=== PATIENT | male | born 1940 | race Hispanic/Latino ===

== ENCOUNTER 2017-11-06 15:05 | Inpatient (IN) | payer MEDICARE ==
[~2017-11-06] VITALS: Ht 167.6 cm; Wt 64.5 kg
[~2017-11-06 15:05] MED LIST: AMIO200T2 PO; APIX5TAB PO; ATOR10 PO; CHOL200012 PO; CHOL200026 PO; DILT120T PO; DOXY100C2 PO; FERR-82 PO; FINA5TAB41 PO; INSU100V12 SQ; INSU100V3 IJ; METO100T14 PO; MOME0.132 IH; MULT-1203 PO; OMEG-96 PO; PANT40TA25 PO; PREG50 PO; TAMS0.4C32 PO; TIOT4MIS3 IH
[2017-11-06] MEDS ORDERED: IPRATROPIUM/ALBUTEROL SULFATE 3 ML SOLUTION IH ONE (16:14)
[2017-11-06 16:27] LABS: BASOPHILS % (AUTO) 0.3 % (0.0-5.0); LYMPHOCYTES % (AUTO) 6.9 % (21.0-51.0); MEAN CORPUSCULAR HEMOGLOBIN 30.4 pg (27.0-33.0); MEAN CORPUSCULAR HGB CONC 34.6 g/dL (32.0-36.0); MONOCYTES % (AUTO) 11.6 % (3.0-13.0); NEUTROPHILS % (AUTO) 80.2 % (40.0-77.0); PLATELET COUNT (AUTO) 88 K/uL (130-400); RED CELL DISTRIBUTION WIDTH 15.5 % (11.0-15.5); WHITE BLOOD COUNT (AUTO) 5.1 K/uL (4.8-10.8)
[2017-11-06 16:30] LABS: HEMATOCRIT 20.2 % (42-54)
[2017-11-06 16:35] LABS: INR 1.02 (0.85-1.15); PARTIAL THROMBOPLASTIN TIME 30.7 SEC (26.3-35.5); PROTHROMBIN TIME 10.7 SEC (9.6-11.6)
[2017-11-06 16:39] LABS: CREATININE 1.4 mg/dL (0.5-1.5); POTASSIUM 3.8 mmol/L (3.5-5.1)
[2017-11-06 16:44] LABS: BILIRUBIN,TOTAL 0.9 mg/dL (0.2-1.0); TOTAL PROTEIN, SERUM 6.1 g/dL (6.0-8.3)
[2017-11-06] MEDS ORDERED: SODIUM CHLORIDE 0.9% 1000ML 1,000 ML IV ONE (16:44)
[2017-11-06] MEDS ORDERED: CEFTRIAXONE SODIUM 1 GM ONE (17:44)
[2017-11-06] MEDS ORDERED: METHYLPREDNISOLONE SOD SUCC 40MG/ML 1ML ONE (19:34)
[2017-11-06] MEDS ORDERED: AZITHROMYCIN 500MG+NS 250ML 250 ML IV ONE (19:35)
[2017-11-06 23:40] VITALS: BP 134/56
[2017-11-07] MEDS: AZITHROMYCIN 500 MG in SODIUM CHLORIDE 0.9% 250 ML IV SCH (00:45)
[2017-11-07] MEDS: METHYLPREDNISOLONE SOD SUCC 40MG/ML 1ML IVP SCH ×3 (01:08→18:36)
[2017-11-07 04:00] VITALS: BP 152/66
[2017-11-07] MEDS ORDERED: GLUCAGON 1MG KIT 1 MG ML IM PRN (04:00)
[2017-11-07] MEDS ORDERED: POTASSIUM CHLORIDE 20MEQ/100ML 100 ML IV PRN (04:00)
[2017-11-07] MEDS ORDERED: ACETAMINOPHEN-CODEINE 300/30MG TAB PO PRN ×2 (04:00)
[2017-11-07] MEDS ORDERED: LIDOCAINE HCL-MPF 1% 2ML VIAL IVP PRN (04:00)
[2017-11-07] MEDS ORDERED: POTASSIUM CHLORIDE 10% ELIXIR 20 MEQ/15 ML UDCUP PO PRN (04:00)
[2017-11-07] MEDS ORDERED: CEFTRIAXONE 1GM/D5W 50ML 50 ML IV SCH (04:00)
[2017-11-07] MEDS ORDERED: DEXTROSE 50%-WATER 50 ML DISP.SYRIN IV PRN (04:00)
[2017-11-07 05:19] LABS: MEAN CORPUSCULAR HEMOGLOBIN 31.8 pg (27.0-33.0); MEAN CORPUSCULAR HGB CONC 36.1 g/dL (32.0-36.0); MEAN CORPUSCULAR VOLUME 88.1 fL (79-99); PLATELET COUNT (AUTO) 78 K/uL (130-400); RED BLOOD CELL COUNT(AUTO) 2.06 MIL/uL (4.50-6.20); RED CELL DISTRIBUTION WIDTH 15.5 % (11.0-15.5); WHITE BLOOD COUNT (AUTO) 4.1 K/uL (4.8-10.8)
[2017-11-07 05:27] LABS: APPEARANCE,URINE Turbid (CLEAR); BILIRUBIN,URINE Negative (NEGATIVE); COLOR,URINE Yellow (YELLOW); GLUCOSE, URINE (UA) 500 mg/dL (NEGATIVE); KETONES,URINE 15 mg/dL (NEGATIVE); LEUKOCYTE ESTERASE ,URINE Large (NEGATIVE); NITRATE,URINE Negative (NEGATIVE); OCCULT BLOOD,URINE Moderate (NEGATIVE); PROTEIN,URINE POS 1+ (NEGATIVE)
[2017-11-07 05:31] LABS: HEMATOCRIT 18.1 % (42-54)
[2017-11-07 05:44] LABS: CREATINE KINASE MB 1.8 ng/mL (0.5-3.6); CREATININE 1.2 mg/dL (0.5-1.5); POTASSIUM 4.2 mmol/L (3.5-5.1); TROPONIN I 0.05 ng/mL (0.00-0.06)
[2017-11-07] MEDS ORDERED: ALBU8.5H8 IH (05:50)
[2017-11-07] MEDS ORDERED: OMEG-125 PO (05:50)
[2017-11-07] MEDS ORDERED: LEVO500T2 PO (05:50)
[2017-11-07 05:58] LABS: BACTERIA,URINE Many /HPF (None Seen); MUCUS,URINE Few LPF (None Seen); SQUAMOUS EPITHELIAL CELL,UR Few /LPF (0-2); YEAST,URINE BUDDING Moderate /HPF (None Seen)
[2017-11-07] MEDS ORDERED: CEFTRIAXONE SODIUM 1 GM IVP SCH ×2 (06:00→19:00)
[2017-11-07] MEDS: INSULIN HUMULIN R 100 UNIT/ML 3ML SQ SCH ×4 (06:30→22:30)
[2017-11-07] MEDS: IPRATROPIUM/ALBUTEROL SULFATE 3 ML SOLUTION IH PRN ×2 (07:17→12:51)
[2017-11-07 07:30] VITALS: BP 160/60
[2017-11-07 11:00] VITALS: BP 120/61
[2017-11-07] MEDS ORDERED: DIATR MEGLU/DIATRIZOATE SODIUM 30 ML BOTTLE ONE (15:03)
[2017-11-07 16:00] VITALS: BP 130/88
[2017-11-07 19:00] VITALS: BP 139/57
[2017-11-07] MEDS ORDERED: IOPAMIDOL-370 75 ML VIAL IV ONE (21:25)
[2017-11-07] MEDS: APIXABAN 5 MG TABLET PO SCH (22:29)
[2017-11-07] MEDS: ATORVASTATIN CALCIUM 10 MG TABLET PO SCH (22:29)
[2017-11-07] MEDS: PREGABALIN 25 MG CAP PO SCH (22:29)
[2017-11-07] MEDS: METOPROLOL TARTRATE 50 MG TAB PO SCH (22:30)
[2017-11-07 23:00] VITALS: BP 137/76
[2017-11-07] MEDS ORDERED: SODIUM CHLORIDE 0.9% 500ML 500 ML IV ONE (23:10)
[2017-11-08] MEDS: METHYLPREDNISOLONE SOD SUCC 40MG/ML 1ML IVP SCH ×3 (01:02→17:15)
[2017-11-08] MEDS ORDERED: AZITHROMYCIN 500MG+NS 250ML 250 ML IV ONE (01:05)
[2017-11-08] MEDS: AZITHROMYCIN 500 MG in SODIUM CHLORIDE 0.9% 250 ML IV SCH (01:06)
[2017-11-08 03:00] VITALS: BP 122/79
[2017-11-08 05:01] LABS: HEMATOCRIT 26.6 % (42-54); MEAN CORPUSCULAR HEMOGLOBIN 30.5 pg (27.0-33.0); MEAN CORPUSCULAR HGB CONC 34.9 g/dL (32.0-36.0); MEAN CORPUSCULAR VOLUME 87.4 fL (79-99); PLATELET COUNT (AUTO) 81 K/uL (130-400); RED BLOOD CELL COUNT(AUTO) 3.04 MIL/uL (4.50-6.20); RED CELL DISTRIBUTION WIDTH 15.2 % (11.0-15.5); WHITE BLOOD COUNT (AUTO) 6.4 K/uL (4.8-10.8)
[2017-11-08 05:16] LABS: CREATININE 1.3 mg/dL (0.5-1.5); POTASSIUM 4.2 mmol/L (3.5-5.1)
[2017-11-08 08:00] VITALS: BP 147/68
[2017-11-08] MEDS: INSULIN HUMULIN R 100 UNIT/ML 3ML SQ SCH ×4 (08:10→22:50)
[2017-11-08] MEDS ORDERED: CEFEPIME 1GM+NS 50ML 50 ML IV SCH (08:30)
[2017-11-08] MEDS: Cholecalciferol (Vitamin D3) 2,000 UNIT PO SCH (09:00)
[2017-11-08] MEDS ORDERED: INSULIN DETEMIR 10ML 100 UNIT/ML 10ML SQ SCH (09:00)
[2017-11-08] MEDS ORDERED: OSELTAMIVIR PHOSPHATE 75 MG CAP PO SCH (09:00)
[2017-11-08] MEDS ORDERED: COMPOUND PO MISCELLANEOUS 1 EACH MISC MISC PRN (09:15)
[2017-11-08] MEDS: DILTIAZEM HCL 120 MG CAP.SR.24H PO SCH (09:27)
[2017-11-08] MEDS: METOPROLOL TARTRATE 50 MG TAB PO SCH ×2 (09:27→22:30)
[2017-11-08] MEDS: MULTIVITAMIN TABLET PO SCH (09:28)
[2017-11-08] MEDS: FERROUS SULFATE 325 MG TABLET.DR PO SCH (09:28)
[2017-11-08] MEDS: APIXABAN 5 MG TABLET PO SCH ×2 (09:28→22:30)
[2017-11-08] MEDS: TAMSULOSIN HCL 0.4 MG CAP.ER.24H PO SCH (09:28)
[2017-11-08] MEDS: FISH OIL 1000 MG/CAP PO SCH (09:28)
[2017-11-08] MEDS: FINASTERIDE 5 MG TABLET PO SCH (09:28)
[2017-11-08] MEDS: AMIODARONE HCL 200 MG TABLET PO SCH (09:28)
[2017-11-08] MEDS: HONEY 1 APPL/ML TUBE TP SCH (09:29)
[2017-11-08] MEDS: OSELTAMIVIR PHOSPHATE 300 MG, COMPOUNDING VEHICLE SF NO.9 50 ML PO SCH ×4 (11:16→22:38)
[2017-11-08] MEDS: CEFEPIME HCL 1 GM VIAL IVP SCH ×2 (11:16→17:14)
[2017-11-08] MEDS: DOXYCYCLINE 100MG+NS 250ML 250 ML IV SCH ×2 (11:50→22:31)
[2017-11-08 11:51] VITALS: BP 134/58
[2017-11-08] MEDS: IPRATROPIUM/ALBUTEROL SULFATE 3 ML SOLUTION IH SCH ×3 (11:55→23:53)
[2017-11-08 16:20] VITALS: BP 104/61
[2017-11-08 19:32] VITALS: BP 120/53
[2017-11-08] MEDS: ATORVASTATIN CALCIUM 10 MG TABLET PO SCH (22:30)
[2017-11-08] MEDS: PREGABALIN 25 MG CAP PO SCH (22:30)
[2017-11-08 23:39] VITALS: BP 134/56
[2017-11-09] MEDS: METHYLPREDNISOLONE SOD SUCC 40MG/ML 1ML IVP SCH ×3 (01:06→17:34)
[2017-11-09] MEDS: CEFEPIME HCL 1 GM VIAL IVP SCH ×3 (01:07→17:34)
[2017-11-09 03:37] VITALS: BP 123/59
[2017-11-09 05:10] LABS: ABG BASE EXCESS -4.6 mmol/L (-2.0-3.0); ABG HCO3 17.5 mmol/L (21.0-28.0); ABG OXYGEN SATURATION 97.2 % (95.0-99.0); ABG PCO2 26 mmHg (35-48)
[2017-11-09 06:01] LABS: HEMATOCRIT 24.8 % (42-54); MEAN CORPUSCULAR HEMOGLOBIN 31.7 pg (27.0-33.0); MEAN CORPUSCULAR HGB CONC 36.1 g/dL (32.0-36.0); MEAN CORPUSCULAR VOLUME 87.7 fL (79-99); PLATELET COUNT (AUTO) 74 K/uL (130-400); RED BLOOD CELL COUNT(AUTO) 2.83 MIL/uL (4.50-6.20); RED CELL DISTRIBUTION WIDTH 15.5 % (11.0-15.5); WHITE BLOOD COUNT (AUTO) 5.1 K/uL (4.8-10.8)
[2017-11-09 06:29] LABS: ALBUMIN 1.9 g/dL (3.5-5.0); BILIRUBIN,TOTAL 0.4 mg/dL (0.2-1.0); CREATININE 1.3 mg/dL (0.5-1.5); MAGNESIUM 1.3 mg/dL (1.80-2.40); PHOSPHORUS 2.9 mg/dL (2.5-4.9); POTASSIUM 3.3 mmol/L (3.5-5.1); TOTAL PROTEIN, SERUM 5.6 g/dL (6.0-8.3)
[2017-11-09] MEDS: IPRATROPIUM/ALBUTEROL SULFATE 3 ML SOLUTION IH SCH ×4 (06:56→23:55)
[2017-11-09 07:00] VITALS: BP 125/63
[2017-11-09] MEDS: INSULIN HUMULIN R 100 UNIT/ML 3ML SQ SCH ×4 (07:55→22:26)
[2017-11-09] MEDS: Cholecalciferol (Vitamin D3) 2,000 UNIT PO SCH (09:00)
[2017-11-09] MEDS: AMIODARONE HCL 200 MG TABLET PO SCH (09:21)
[2017-11-09] MEDS: METOPROLOL TARTRATE 50 MG TAB PO SCH ×2 (09:21→22:20)
[2017-11-09] MEDS: APIXABAN 5 MG TABLET PO SCH ×2 (09:21→22:21)
[2017-11-09] MEDS: FISH OIL 1000 MG/CAP PO SCH (09:21)
[2017-11-09] MEDS: DOXYCYCLINE 100MG+NS 250ML 250 ML IV SCH ×2 (09:21→22:19)
[2017-11-09] MEDS: FERROUS SULFATE 325 MG TABLET.DR PO SCH (09:22)
[2017-11-09] MEDS: FINASTERIDE 5 MG TABLET PO SCH (09:22)
[2017-11-09] MEDS: HONEY 1 APPL/ML TUBE TP SCH (09:22)
[2017-11-09] MEDS: MULTIVITAMIN TABLET PO SCH (09:22)
[2017-11-09] MEDS: DILTIAZEM HCL 120 MG CAP.SR.24H PO SCH (09:22)
[2017-11-09] MEDS: TAMSULOSIN HCL 0.4 MG CAP.ER.24H PO SCH (09:22)
[2017-11-09] MEDS: OSELTAMIVIR PHOSPHATE 300 MG, COMPOUNDING VEHICLE SF NO.9 50 ML PO SCH ×4 (09:26→22:20)
[2017-11-09] MEDS: INSULIN GLARGINE 100 UNITS/ML 10 ML VIAL SQ SCH (09:49)
[2017-11-09 11:00] VITALS: BP 120/55
[2017-11-09] MEDS: POTASSIUM CHLORIDE 20 MEQ ERTAB PO PRN (12:50)
[2017-11-09 16:00] VITALS: BP 104/65
[2017-11-09] MEDS ORDERED: MAGNESIUM 2GM PREMIX 50ML 50 ML IV SCH (17:30)
[2017-11-09] MEDS: BUDESONIDE 0.5 MG/2 ML INH IH PRN (19:00)
[2017-11-09 20:00] VITALS: BP 125/56
[2017-11-09] MEDS: ATORVASTATIN CALCIUM 10 MG TABLET PO SCH (22:20)
[2017-11-09] MEDS: PREGABALIN 25 MG CAP PO SCH (22:21)
[2017-11-10] VITALS: BP 127/48
[2017-11-10] MEDS: CEFEPIME HCL 1 GM VIAL IVP SCH ×3 (01:28→17:36)
[2017-11-10] MEDS: METHYLPREDNISOLONE SOD SUCC 40MG/ML 1ML IVP SCH ×2 (01:28→12:25)
[2017-11-10 04:00] VITALS: BP 125/52
[2017-11-10 05:28] LABS: MEAN CORPUSCULAR HEMOGLOBIN 29.9 pg (27.0-33.0); MEAN CORPUSCULAR VOLUME 88.1 fL (79-99); NUCLEATED RED BLOOD CELLS 0.1 % (0.0-0.19); PLATELET COUNT (AUTO) 72 K/uL (130-400); RED BLOOD CELL COUNT(AUTO) 2.61 MIL/uL (4.50-6.20); RED CELL DISTRIBUTION WIDTH 15.2 % (11.0-15.5); WHITE BLOOD COUNT (AUTO) 6.1 K/uL (4.8-10.8)
[2017-11-10 05:49] LABS: CREATININE 1.4 mg/dL (0.5-1.5); MAGNESIUM 1.8 mg/dL (1.80-2.40); PHOSPHORUS 2.4 mg/dL (2.5-4.9); POTASSIUM 3.3 mmol/L (3.5-5.1)
[2017-11-10] MEDS: INSULIN HUMULIN R 100 UNIT/ML 3ML SQ SCH ×2 (06:22→12:46)
[2017-11-10] MEDS: IPRATROPIUM/ALBUTEROL SULFATE 3 ML SOLUTION IH SCH ×3 (07:07→18:10)
[2017-11-10 08:17] VITALS: BP 129/61
[2017-11-10] MEDS: Cholecalciferol (Vitamin D3) 2,000 UNIT PO SCH (09:00)
[2017-11-10] MEDS: FERROUS SULFATE 325 MG TABLET.DR PO SCH (09:00)
[2017-11-10] MEDS: OSELTAMIVIR PHOSPHATE 300 MG, COMPOUNDING VEHICLE SF NO.9 50 ML PO SCH ×2 (09:00)
[2017-11-10 12:00] VITALS: BP 144/60
[2017-11-10] MEDS: DOXYCYCLINE 100MG+NS 250ML 250 ML IV SCH (12:24)
[2017-11-10] MEDS: AMIODARONE HCL 200 MG TABLET PO SCH (12:25)
[2017-11-10] MEDS: METOPROLOL TARTRATE 50 MG TAB PO SCH (12:25)
[2017-11-10] MEDS: APIXABAN 5 MG TABLET PO SCH (12:25)
[2017-11-10] MEDS: DILTIAZEM HCL 120 MG CAP.SR.24H PO SCH (12:25)
[2017-11-10] MEDS: POTASSIUM CHLORIDE 20 MEQ ERTAB PO PRN (12:26)
[2017-11-10] MEDS: FISH OIL 1000 MG/CAP PO SCH (12:26)
[2017-11-10] MEDS: MULTIVITAMIN TABLET PO SCH (12:26)
[2017-11-10] MEDS: FINASTERIDE 5 MG TABLET PO SCH (12:26)
[2017-11-10] MEDS: TAMSULOSIN HCL 0.4 MG CAP.ER.24H PO SCH (12:26)
[2017-11-10] MEDS: INSULIN GLARGINE 100 UNITS/ML 10 ML VIAL SQ SCH (12:38)
[2017-11-10] MEDS: HONEY 1 APPL/ML TUBE TP SCH (12:43)
[2017-11-10 16:00] VITALS: BP 125/67
[2017-11-10] MEDS: BUDESONIDE 0.5 MG/2 ML INH IH PRN (18:11)
[2017-11-11] MEDS ORDERED: PREDNISONE 10 MG TABLET PO SCH (09:00)
== END 2017-11-10 18:30 | DRG 193 ==
LOC: EDH 15:05 → EDHIP 17:23 → OBSVTOIN 17:23 → 3CH 23:34
PROVIDERS: ADMIT Family Medicine; ATTEND Family Medicine
PROC: 30233N1 Transfusion of Nonautologous Red Blood Cells into Peripheral Vein, Percutaneous Approach (ICD-10-PCS; principal; 2017-11-07)
DX: J18.9 Pneumonia, unspecified organism (principal); J96.20 Acute and chronic respiratory failure, unspecified whether with hypoxia or hypercapnia; D61.818 Other pancytopenia; E46 Unspecified protein-calorie malnutrition; Z93.0 Tracheostomy status; N17.9 Acute kidney failure, unspecified; C34.90 Malignant neoplasm of unspecified part of unspecified bronchus or lung; J44.1 Chronic obstructive pulmonary disease with (acute) exacerbation; J45.901 Unspecified asthma with (acute) exacerbation; M86.9 Osteomyelitis, unspecified; I13.0 Hypertensive heart and chronic kidney disease with heart failure and stage 1 through stage 4 chronic kidney disease, or unspecified chronic kidney disease; G82.20 Paraplegia, unspecified; J44.0 Chronic obstructive pulmonary disease with (acute) lower respiratory infection; E11.22 Type 2 diabetes mellitus with diabetic chronic kidney disease; E11.51 Type 2 diabetes mellitus with diabetic peripheral angiopathy without gangrene; E11.621 Type 2 diabetes mellitus with foot ulcer; E11.65 Type 2 diabetes mellitus with hyperglycemia; E86.0 Dehydration; D63.8 Anemia in other chronic diseases classified elsewhere; E11.69 Type 2 diabetes mellitus with other specified complication; E78.5 Hyperlipidemia, unspecified; I25.10 Atherosclerotic heart disease of native coronary artery without angina pectoris; I48.91 Unspecified atrial fibrillation; I50.9 Heart failure, unspecified; L97.529 Non-pressure chronic ulcer of other part of left foot with unspecified severity; D63.0 Anemia in neoplastic disease; M54.10 Radiculopathy, site unspecified; N18.9 Chronic kidney disease, unspecified; N40.1 Benign prostatic hyperplasia with lower urinary tract symptoms; R33.8 Other retention of urine; Z74.01 Bed confinement status; Z79.01 Long term (current) use of anticoagulants; Z85.118 Personal history of other malignant neoplasm of bronchus and lung; Z92.21 Personal history of antineoplastic chemotherapy; Z87.891 Personal history of nicotine dependence; Z92.3 Personal history of irradiation; Z95.0 Presence of cardiac pacemaker; Z95.1 Presence of aortocoronary bypass graft; Z68.23 Body mass index [BMI] 23.0-23.9, adult; Z89.422 Acquired absence of other left toe(s); Z89.421 Acquired absence of other right toe(s); Z28.21 Immunization not carried out because of patient refusal
CPT/HCPCS: 36415; 36430; 36600; 71045; 71275; 74177; 80048; 80053; 81001; 82550; 82553; 82803; 82948; 83605; 83735; 83874; 83880; 84100; 84484; 85025; 85027; 85610; 85730; 86850; 86900; 86901; 86922; 87804; 93005; 94640; 94664; A4218; J0456; J0692; J0696; J1815; J2920; J3475; J3490; J7030; J7040; P9016; Q9963; Q9967

== ENCOUNTER 2017-11-14 13:33 | Inpatient (IN) | payer MEDICARE ==
[2017-11-14] VITALS (18 sets, daily range): BP systolic 93–156; BP diastolic 39–99
[~2017-11-14] VITALS: Ht 165.1 cm; Wt 76.2 kg
[~2017-11-14 13:33] MED LIST changes: +ALBU8.5H8 IH; +LEVO500T2 PO; +OMEG-125 PO
[2017-11-14 14:35] LABS: ABG BASE EXCESS -14.6 mmol/L (-2.0-3.0); ABG HCO3 9.3 mmol/L (21.0-28.0); ABG OXYGEN SATURATION 99.1 % (95.0-99.0); ABG PCO2 19 mmHg (35-48)
[2017-11-14] MEDS ORDERED: VANCOMYCIN 1GM+NS 250ML 250 ML IV ONE (16:26)
[2017-11-14] MEDS ORDERED: DEXTROSE 50%-WATER 50 ML DISP.SYRIN IV ONE ×2 (16:57→23:53)
[2017-11-14] MEDS ORDERED: DEXTROSE 10%-WATER 1,000 ML IV ONE (17:10)
[2017-11-14] MEDS: MEROPENEM 1 GM VIAL IVP SCH (21:45)
[2017-11-14] MEDS: SODIUM CHLORIDE 0.9% 1000ML 1,000 ML IV SCH (21:45)
[2017-11-14] MEDS: DEXTROSE 10%-WATER 1,000 ML IV SCH (21:50)
[2017-11-14] MEDS ORDERED: IPRA3AMP4 IH (22:01)
[2017-11-14] MEDS ORDERED: IPRA0.2S54 IH (22:01)
[2017-11-14] MEDS ORDERED: PRED20TA3 PO (22:01)
[2017-11-14] MEDS ORDERED: CEFE1FRO IV (22:01)
[2017-11-14] MEDS ORDERED: DILT120C89 PO (22:01)
[2017-11-14] MEDS ORDERED: POTASSIUM CHLORIDE 20 MEQ ERTAB PO PRN (23:30)
[2017-11-14] MEDS ORDERED: ACETAMINOPHEN-CODEINE 300/30MG TAB PO PRN ×2 (23:30)
[2017-11-14] MEDS ORDERED: POTASSIUM CHLORIDE 20MEQ/100ML 100 ML IV PRN (23:30)
[2017-11-14] MEDS ORDERED: MAGNESIUM 2GM PREMIX 50ML 50 ML IV PRN (23:30)
[2017-11-14] MEDS ORDERED: POTASSIUM CHLORIDE 10% ELIXIR 20 MEQ/15 ML UDCUP PO PRN (23:30)
[2017-11-14] MEDS ORDERED: LIDOCAINE HCL-MPF 1% 2ML VIAL IVP PRN (23:30)
[2017-11-14] MEDS ORDERED: DEXTROSE 50%-WATER 25 GM/50 ML VIAL IV PRN (23:30)
[2017-11-14] MEDS ORDERED: ACETAMINOPHEN 325 MG TAB PO PRN ×2 (23:30)
[2017-11-14] MEDS ORDERED: BUDESONIDE 0.5 MG/2 ML INH IH PRN (23:30)
[2017-11-15] VITALS (25 sets, daily range): BP systolic 88–138; BP diastolic 34–93
[2017-11-15] MEDS: IPRATROPIUM/ALBUTEROL SULFATE 3 ML SOLUTION IH SCH ×4 (00:18→18:10)
[2017-11-15] MEDS: CEFEPIME HCL 1 GM VIAL IVP SCH ×2 (01:29→12:53)
[2017-11-15 03:45] LABS: BASOPHILS % (AUTO) 0.1 % (0.0-5.0); HEMATOCRIT 21.5 % (42-54); LYMPHOCYTES % (AUTO) 3.3 % (21.0-51.0); MEAN CORPUSCULAR HGB CONC 34.7 g/dL (32.0-36.0); MEAN CORPUSCULAR VOLUME 89.4 fL (79-99); MONOCYTES % (AUTO) 3.3 % (3.0-13.0); NEUTROPHILS % (AUTO) 93.3 % (40.0-77.0); NUCLEATED RED BLOOD CELLS 0.1 % (0.0-0.19); PLATELET COUNT (AUTO) 59 K/uL (130-400); RED BLOOD CELL COUNT(AUTO) 2.41 MIL/uL (4.50-6.20); RED CELL DISTRIBUTION WIDTH 16.3 % (11.0-15.5); WHITE BLOOD COUNT (AUTO) 11.4 K/uL (4.8-10.8)
[2017-11-15 03:53] LABS: CREATININE 3.6 mg/dL (0.5-1.5); POTASSIUM 5.3 mmol/L (3.5-5.1)
[2017-11-15] MEDS: MEROPENEM 1 GM VIAL IVP SCH ×3 (04:24→21:02)
[2017-11-15 05:29] LABS: ABG BASE EXCESS -15.6 mmol/L (-2.0-3.0); ABG HCO3 8.8 mmol/L (21.0-28.0); ABG OXYGEN SATURATION 99.2 % (95.0-99.0); ABG PCO2 20 mmHg (35-48)
[2017-11-15 05:57] LABS: PLATELET MORPHOLOGY COMMENT DECREASED
[2017-11-15] MEDS: SODIUM CHLORIDE 0.9% 1000ML 1,000 ML IV SCH ×2 (06:37→12:53)
[2017-11-15] MEDS: METOPROLOL TARTRATE 50 MG TAB PO SCH ×2 (09:00→21:00)
[2017-11-15] MEDS ORDERED: PREDNISONE 20 MG TABLET PO SCH (09:00)
[2017-11-15] MEDS: DILTIAZEM HCL 120 MG CAP.SR.24H PO SCH (09:00)
[2017-11-15] MEDS: **HM** VIT D3 2000 UNITS PO SCH (09:00)
[2017-11-15] MEDS: DOXYCYCLINE 100MG+NS 250ML 250 ML IV SCH ×2 (10:13→21:02)
[2017-11-15] MEDS: FISH OIL 1000 MG/CAP PO SCH (10:14)
[2017-11-15] MEDS: FERROUS SULFATE 325 MG TABLET.DR PO SCH (10:14)
[2017-11-15] MEDS: FINASTERIDE 5 MG TABLET PO SCH (10:14)
[2017-11-15] MEDS: APIXABAN 5 MG TABLET PO SCH ×2 (10:14→21:00)
[2017-11-15] MEDS: AMIODARONE HCL 200 MG TABLET PO SCH (10:14)
[2017-11-15] MEDS: TAMSULOSIN HCL 0.4 MG CAP.ER.24H PO SCH (10:14)
[2017-11-15] MEDS: DEXTROSE 10%-WATER 1,000 ML IV SCH (12:53)
[2017-11-15] MEDS ORDERED: SODIUM CHLORIDE 0.9% 500ML 500 ML in SODIUM CHLORIDE 0.9% 500ML 500 ML IV SCH (14:15)
[2017-11-15] MEDS ORDERED: CALCIUM GLUCONATE 1 GM in SODIUM CHLORIDE 0.9% 50 ML IV SCH (14:15)
[2017-11-15] MEDS ORDERED: COMPOUND PO MISCELLANEOUS 1 EACH MISC MISC PRN (14:15)
[2017-11-15] MEDS ORDERED: SODIUM CHLORIDE 0.9% 1000ML 1,000 ML IV SCH (14:30)
[2017-11-15] MEDS: HONEY 1 APPL/ML TUBE TP SCH (15:26)
[2017-11-15] MEDS: HYDROCORTISONE SOD SUCCINATE 100 MG/2 ML VIAL IV SCH ×2 (15:26→21:03)
[2017-11-15] MEDS: SODIUM POLYSTYRENE SULFONATE 15 GM/60 ML ML PO SCH (15:27)
[2017-11-15] MEDS: OSELTAMIVIR SUSP 15 MG/ML (6 CAPS/29ML) PO SCH ×2 (15:38)
[2017-11-15] MEDS ORDERED: VANCOMYCIN 1GM+NS 250ML 250 ML IV SCH (16:00)
[2017-11-15] MEDS ORDERED: SODIUM POLYSTYRENE SULFONATE 15 GM/60 ML ML PO SCH (18:15)
[2017-11-15] MEDS ORDERED: SODIUM BICARB 8.4% 50ML SYRING 200 MEQ in DEXTROSE 10%-WATER 1,000 ML IV SCH (21:00)
[2017-11-15] MEDS ORDERED: PREGABALIN 25 MG CAP PO SCH (21:00)
[2017-11-15] MEDS ORDERED: ATORVASTATIN CALCIUM 10 MG TABLET PO SCH (21:00)
[2017-11-15 21:39] LABS: ABG BASE EXCESS -16.5 mmol/L (-2.0-3.0); ABG HCO3 8.2 mmol/L (21.0-28.0); ABG OXYGEN SATURATION 99.1 % (95.0-99.0); ABG PCO2 19 mmHg (35-48)
[2017-11-15] MEDS ORDERED: SODIUM BICARB 50MEQ 50ML VIAL ONE ×2 (21:44→21:45)
[2017-11-15] MEDS ORDERED: SODIUM BICARB 50MEQ 50ML VIAL IV ONE (21:45)
[2017-11-16] VITALS (18 sets, daily range): BP systolic 87–133; BP diastolic 48–86
[2017-11-16] MEDS: IPRATROPIUM/ALBUTEROL SULFATE 3 ML SOLUTION IH SCH ×3 (00:09→10:46)
[2017-11-16] MEDS: SODIUM CHLORIDE 0.9% 1000ML 1,000 ML IV SCH ×2 (01:15→12:46)
[2017-11-16] MEDS: MEROPENEM 1 GM VIAL IVP SCH ×2 (04:11→13:00)
[2017-11-16 04:14] LABS: BASOPHILS % (AUTO) 0.1 % (0.0-5.0); LYMPHOCYTES % (AUTO) 1.4 % (21.0-51.0); MEAN CORPUSCULAR HEMOGLOBIN 30.1 pg (27.0-33.0); MEAN CORPUSCULAR HGB CONC 33.9 g/dL (32.0-36.0); MEAN CORPUSCULAR VOLUME 88.7 fL (79-99); MONOCYTES % (AUTO) 2.7 % (3.0-13.0); NEUTROPHILS % (AUTO) 95.8 % (40.0-77.0); PLATELET COUNT (AUTO) 53 K/uL (130-400); RED BLOOD CELL COUNT(AUTO) 2.35 MIL/uL (4.50-6.20); RED CELL DISTRIBUTION WIDTH 16.7 % (11.0-15.5); WHITE BLOOD COUNT (AUTO) 10.7 K/uL (4.8-10.8)
[2017-11-16 04:21] LABS: HEMATOCRIT 20.8 % (42-54)
[2017-11-16 04:53] LABS: INR 1.37 (0.85-1.15); PROTHROMBIN TIME 14.3 SEC (9.6-11.6)
[2017-11-16 05:06] LABS: ALBUMIN 1.5 g/dL (3.5-5.0); BILIRUBIN,TOTAL 0.5 mg/dL (0.2-1.0); CREATININE 4.1 mg/dL (0.5-1.5); MAGNESIUM 1.4 mg/dL (1.80-2.40); PHOSPHORUS 7.3 mg/dL (2.5-4.9); POTASSIUM 4.3 mmol/L (3.5-5.1); THYROID STIMULATING HORMONE 0.06 uIU/mL (0.36-3.74); TOTAL PROTEIN, SERUM 5.1 g/dL (6.0-8.3); URIC ACID 8.8 mg/dL (2.6-7.2)
[2017-11-16 06:07] LABS: ABG BASE EXCESS -11.7 mmol/L (-2.0-3.0); ABG HCO3 11.1 mmol/L (21.0-28.0); ABG OXYGEN SATURATION 99.3 % (95.0-99.0); ABG PCO2 20 mmHg (35-48)
[2017-11-16] MEDS: SODIUM POLYSTYRENE SULFONATE 15 GM/60 ML ML PO SCH (07:52)
[2017-11-16] MEDS: DOXYCYCLINE 100MG+NS 250ML 250 ML IV SCH (08:25)
[2017-11-16] MEDS: HYDROCORTISONE SOD SUCCINATE 100 MG/2 ML VIAL IV SCH ×2 (08:25→14:00)
[2017-11-16] MEDS: FINASTERIDE 5 MG TABLET PO SCH (08:50)
[2017-11-16] MEDS: DILTIAZEM HCL 120 MG CAP.SR.24H PO SCH (08:50)
[2017-11-16] MEDS: **HM** VIT D3 2000 UNITS PO SCH (08:50)
[2017-11-16] MEDS: FISH OIL 1000 MG/CAP PO SCH (08:50)
[2017-11-16] MEDS: METOPROLOL TARTRATE 50 MG TAB PO SCH (08:50)
[2017-11-16] MEDS: OSELTAMIVIR SUSP 15 MG/ML (6 CAPS/29ML) PO SCH ×2 (08:50)
[2017-11-16] MEDS: TAMSULOSIN HCL 0.4 MG CAP.ER.24H PO SCH (08:50)
[2017-11-16] MEDS: FERROUS SULFATE 325 MG TABLET.DR PO SCH (08:50)
[2017-11-16] MEDS: AMIODARONE HCL 200 MG TABLET PO SCH (08:51)
[2017-11-16] MEDS ORDERED: OSELTAMIVIR PHOSPHATE 75 MG CAP PO SCH (09:00)
[2017-11-16] MEDS ORDERED: THIAMINE HCL 100 MG TABLET PO SCH (09:00)
[2017-11-16] MEDS ORDERED: PANTOPRAZOLE SODIUM 40 MG TABLET.DR PO SCH (09:00)
[2017-11-16] MEDS ORDERED: FOLIC ACID/VITAMIN B COMP W-C 1 MG CAPSULE PO SCH (09:00)
[2017-11-16] MEDS ORDERED: PHARMACY COMMUNICATION MISC SCH (11:15)
[2017-11-16] MEDS ORDERED: VANCOMYCIN PROTOCOL PER PHARMACY IV SCH (11:30)
[2017-11-16] MEDS ORDERED: MORPHINE SULFATE 2 MG/ML 1ML SYG IVP PRN (12:30)
[2017-11-16] MEDS ORDERED: LORAZEPAM 2 MG/ML 1 ML VIAL IVP PRN (12:30)
[2017-11-16] MEDS ORDERED: MAGNESIUM 2GM PREMIX 50ML 50 ML IV SCH (12:30)
[2017-11-16] MEDS: HONEY 1 APPL/ML TUBE TP SCH (12:46)
[2017-11-17] MEDS ORDERED: VANCOMYCIN 1GM+NS 250ML 250 ML IV SCH (16:00)
== END 2017-11-16 15:59 | disposition hospice, inpatient (51) | DRG 871 ==
LOC: EDH 13:33 → EDHIP 13:34 → 2BH 19:04
PROVIDERS: ADMIT Internal Medicine Hematology & Oncology; ATTEND Internal Medicine Hematology & Oncology
PROC: 5A09457 Assistance with Respiratory Ventilation, 24-96 Consecutive Hours, Continuous Positive Airway Pressure (ICD-10-PCS; principal; 2017-11-14)
DX: A41.9 Sepsis, unspecified organism (principal); G82.50 Quadriplegia, unspecified; J96.00 Acute respiratory failure, unspecified whether with hypoxia or hypercapnia; N17.0 Acute kidney failure with tubular necrosis; R65.21 Severe sepsis with septic shock; L89.159 Pressure ulcer of sacral region, unspecified stage; J18.9 Pneumonia, unspecified organism; D69.6 Thrombocytopenia, unspecified; E11.22 Type 2 diabetes mellitus with diabetic chronic kidney disease; E87.2 Acidosis; J44.0 Chronic obstructive pulmonary disease with (acute) lower respiratory infection; M86.9 Osteomyelitis, unspecified; E11.621 Type 2 diabetes mellitus with foot ulcer; D64.9 Anemia, unspecified; E11.649 Type 2 diabetes mellitus with hypoglycemia without coma; E11.69 Type 2 diabetes mellitus with other specified complication; E87.5 Hyperkalemia; I12.9 Hypertensive chronic kidney disease with stage 1 through stage 4 chronic kidney disease, or unspecified chronic kidney disease; I25.10 Atherosclerotic heart disease of native coronary artery without angina pectoris; I48.2 Chronic atrial fibrillation; L97.529 Non-pressure chronic ulcer of other part of left foot with unspecified severity; N18.9 Chronic kidney disease, unspecified; N40.0 Benign prostatic hyperplasia without lower urinary tract symptoms; Z66 Do not resuscitate; Z74.01 Bed confinement status; Z79.01 Long term (current) use of anticoagulants; Z85.118 Personal history of other malignant neoplasm of bronchus and lung; Z87.891 Personal history of nicotine dependence; Z95.0 Presence of cardiac pacemaker; Z95.1 Presence of aortocoronary bypass graft; Z92.3 Personal history of irradiation; Z92.21 Personal history of antineoplastic chemotherapy; Z89.422 Acquired absence of other left toe(s); Z89.421 Acquired absence of other right toe(s)
CPT/HCPCS: 36415; 36600; 71045; 76770; 80048; 80053; 82803; 82948; 83605; 83735; 84100; 84132; 84443; 84550; 85025; 85610; 85730; 93306; 94640; 94660; 94664; A4218; A4344; J0610; J0692; J1720; J2185; J3370; J3475; J3490; J7030; J7040; J7070

== ENCOUNTER 2017-11-16 16:00 | Inpatient (IN) | payer OTHER ==
[~2017-11-16 16:00] MED LIST changes: +CEFE1FRO IV; +DILT120C89 PO; +IPRA0.2S54 IH; +IPRA3AMP4 IH; +PRED20TA3 PO
[2017-11-16] MEDS ORDERED: ALBUTEROL SULFATE 0.083% 2.5 MG/3 ML INH IH PRN (17:00)
[2017-11-16] MEDS ORDERED: ONDANSETRON HCL MDV 20ML 2 MG/ML VIAL IVP PRN (17:00)
[2017-11-16] MEDS ORDERED: BISACODYL 10 MG SUPP.RECT RC PRN (17:00)
[2017-11-16] MEDS: LORAZEPAM 2 MG/ML 1 ML VIAL IVP PRN ×2 (17:44→22:14)
[2017-11-16] MEDS ORDERED: HYDROMORPHONE 1 MG/1 ML AMP ONE (17:57)
[2017-11-16] MEDS ORDERED: HYDROMORPHONE 1 MG/1 ML AMP IVP SCH (18:30)
[2017-11-16] MEDS: HYDROMORPHONE HCL 0.5 MG/0.5 ML ML IVP PRN (22:05)
[2017-11-17] MEDS: LORAZEPAM 2 MG/ML 1 ML VIAL IVP PRN ×2 (01:06→09:13)
[2017-11-17] MEDS: HYDROMORPHONE HCL 0.5 MG/0.5 ML ML IVP PRN ×4 (02:30→21:39)
[2017-11-17] MEDS: HYDROMORPHONE PCA 10 MG/50 ML 50 ML IV SCH (13:22)
[2017-11-18] MEDS: HYDROMORPHONE HCL 0.5 MG/0.5 ML ML IVP PRN ×2 (01:47→06:11)
[2017-11-18] MEDS ORDERED: HYDROMORPHONE 1 MG/1 ML AMP ONE (22:03)
[2017-11-19] MEDS ORDERED: HYDROMORPHONE 1 MG/1 ML AMP ONE (00:20)
[2017-11-19] MEDS ORDERED: SODIUM CHLORIDE 0.9% 500ML 500 ML IV ONE (05:28)
[2017-11-19] MEDS ORDERED: GLYCOPYRROLATE 1 MG/5 ML SYRINGE IV SCH (12:00)
[2017-11-19] MEDS: LORAZEPAM 2 MG/ML 1 ML VIAL IVP PRN (15:13)
[2017-11-19] MEDS: GLYCOPYRROLATE 0.2 MG/ML 5 ML VIAL IVP SCH (18:08)
[2017-11-19] MEDS: HYDROMORPHONE PCA 10 MG/50 ML 50 ML IV SCH (19:43)
[2017-11-20] MEDS: GLYCOPYRROLATE 0.2 MG/ML 5 ML VIAL IVP SCH ×4 (00:46→18:28)
[2017-11-21] MEDS: GLYCOPYRROLATE 0.2 MG/ML 5 ML VIAL IVP SCH ×4 (01:12→17:48)
[2017-11-21] MEDS: HYDROMORPHONE PCA 10 MG/50 ML 50 ML IV SCH (14:06)
[2017-11-21] MEDS: LORAZEPAM 2 MG/ML 1 ML VIAL IVP PRN (14:07)
[2017-11-22] MEDS: GLYCOPYRROLATE 0.2 MG/ML 5 ML VIAL IVP SCH ×4 (01:02→17:33)
[2017-11-22] MEDS: HYDROMORPHONE HCL 0.5 MG/0.5 ML ML IVP PRN (14:55)
[2017-11-22] MEDS: LORAZEPAM 2 MG/ML 1 ML VIAL IVP PRN (17:33)
[2017-11-23] MEDS: GLYCOPYRROLATE 0.2 MG/ML 5 ML VIAL IVP SCH ×2 (00:28→08:05)
[2017-11-23] MEDS: HYDROMORPHONE PCA 10 MG/50 ML 50 ML IV SCH (04:31)
== END 2017-11-23 15:30 | disposition expired | DRG 871 ==
LOC: 2BH 16:00 → 3BH 17:28
PROVIDERS: ADMIT Internal Medicine; ATTEND Internal Medicine
PROC: 5A09357 Assistance with Respiratory Ventilation, Less than 24 Consecutive Hours, Continuous Positive Airway Pressure (ICD-10-PCS; principal; 2017-11-16)
DX: A41.9 Sepsis, unspecified organism (principal); R65.21 Severe sepsis with septic shock; J96.90 Respiratory failure, unspecified, unspecified whether with hypoxia or hypercapnia; R64 Cachexia; J18.9 Pneumonia, unspecified organism; N19 Unspecified kidney failure; C34.90 Malignant neoplasm of unspecified part of unspecified bronchus or lung; J44.0 Chronic obstructive pulmonary disease with (acute) lower respiratory infection; Z66 Do not resuscitate; Z51.5 Encounter for palliative care; I73.9 Peripheral vascular disease, unspecified; Z74.01 Bed confinement status; Z87.01 Personal history of pneumonia (recurrent)
CPT/HCPCS: 94660; J1170; J2060; J3490; J7040